=== PATIENT | male | born 1935 | race Caucasian/White ===

== ENCOUNTER → 2017-02-16 | Outpatient (CLI) | payer MEDICARE, BC | END | disposition home or self-care (01) | LOC: RAD.S 09:33 | PROC: 05PY33Z Removal of Infusion Device from Upper Vein, Percutaneous Approach (ICD-10-PCS; principal; 2017-02-16) | DX: N18.6 End stage renal disease (principal) ==

== ENCOUNTER → 2017-04-09 | Outpatient (CLI) | payer MEDICARE, BC | END | disposition home or self-care (01) | LOC: RAD.S 12:30 | DX: K92.2 Gastrointestinal hemorrhage, unspecified (principal); C43.59 Malignant melanoma of other part of trunk; N18.9 Chronic kidney disease, unspecified; D63.1 Anemia in chronic kidney disease ==